=== PATIENT | male | born 1955 | race Asian ===

== ENCOUNTER 2018-08-07 07:51 | Day surgery (SDC) | payer OTHER ==
[2018-08-04 11:26] VITALS: BMI 19.6
[2018-08-07] MEDS ORDERED: PROPOFOL 20 ML ONE ×2 (07:55)
[2018-08-07 10:34] VITALS: TEMP 98.1
[2018-08-07 10:52] VITALS: BP 101/61; PULSE 77
== END 2018-08-07 10:59 | disposition home or self-care (01) ==
LOC: FASU-ENDO 07:51
PROVIDERS: ATTEND Internal Medicine Gastroenterology
PROC: 0DJD8ZZ Inspection of Lower Intestinal Tract, Via Natural or Artificial Opening Endoscopic (ICD-10-PCS; principal; 2018-08-07 08:00)
DX: Z12.11 Encounter for screening for malignant neoplasm of colon (principal); K64.8 Other hemorrhoids